=== PATIENT | female | born 1955 | race Caucasian/White ===

== ENCOUNTER 2018-06-29 11:30 | Day surgery (SDC) | payer MEDICARE, OTHER ==
[~2018-06-29] VITALS: Ht 144.8 cm; Wt 80.0 kg
[~2018-06-29 11:30] MED LIST: Abilify2 MG PO; Amlodipine Besyl5 MG PO; Aspirin EC81 MG PO; CHOL10002 PO; CLON.1 PO; FISH OIL 1,0001 EAC1 PO; FOLI1 PO; LOSA25 PO; NEW BP MED; PRAVACHOL; QUET100 PO; SIMV10 PO; SULTRIDS PO; VENL75ER PO
--- NOTE | 2018-06-29 14:34 | NUR ---
[facility] SPOKE WITH [facility] AND SCHEDULED AN INTAKE APPOINTMENT FOR 06/30/18 @ 2PM FOR PATIENT. APPOINTMENT AND TIME IS NOTED IN THE DISCHARGE PAPERWORK.
--- NOTE | 2018-06-29 15:20 | NUR ---
DISCHARGE PT REMAINED A&OX3 AND DENIED ANY PAIN DURING RECOVERY. R UPPER CHEST SITE REMAINED CDI-NO HEMATOMA NOTED-PORTS REMAINED COVERED. VSS. IV DC'D WITH CANULA IN TACT. PT ABLE TO DRESS SELF. DISCHARGE PAPERWORK GONE OVER WITH PT AND SISTER. PT AND SISTER VERBALLY STATED THE UNDERSTANDING OF THE DISCHARGE EDUCATION AND DENIED ANY QUESTIONS AT THIS TIME. PT WHEELED OUT BY THIS NURSE.
== END 2018-06-29 15:25 | disposition home or self-care (01) ==
LOC: MHTC 11:30
DX: I12.0 Hypertensive chronic kidney disease with stage 5 chronic kidney disease or end stage renal disease (principal); N18.6 End stage renal disease; D63.1 Anemia in chronic kidney disease; Z88.0 Allergy status to penicillin; Z88.8 Allergy status to other drugs, medicaments and biological substances; Z79.899 Other long term (current) drug therapy; Z79.82 Long term (current) use of aspirin
CPT/HCPCS: 36558; 76937; 99152; 99153; C1750; C1769; J1644; J2250; J3010; J7040

== ENCOUNTER 2018-07-08 18:21 | Emergency (ER) | payer MEDICARE, OTHER ==
[~2018-07-08] VITALS: Ht 170.2 cm; Wt 78.5 kg
== END 2018-07-08 20:09 | disposition home or self-care (01) ==
LOC: ER 18:21
DX: S00.03XA Contusion of scalp, initial encounter (principal); S00.12XA Contusion of left eyelid and periocular area, initial encounter; W01.198A Fall on same level from slipping, tripping and stumbling with subsequent striking against other object, initial encounter; Z88.0 Allergy status to penicillin; Z88.8 Allergy status to other drugs, medicaments and biological substances; Z79.899 Other long term (current) drug therapy; Z79.82 Long term (current) use of aspirin; F41.9 Anxiety disorder, unspecified; F43.10 Post-traumatic stress disorder, unspecified; F31.9 Bipolar disorder, unspecified; I12.9 Hypertensive chronic kidney disease with stage 1 through stage 4 chronic kidney disease, or unspecified chronic kidney disease; N18.9 Chronic kidney disease, unspecified; K21.9 Gastro-esophageal reflux disease without esophagitis; Z87.891 Personal history of nicotine dependence
CPT/HCPCS: 70450; 99283-25

== ENCOUNTER → 2018-11-10 | Outpatient (CLI) | payer MEDICARE, OTHER ==
[2018-11-12 16:07] LABS: HPV 16 Negative (Negative); HPV 18 Negative (Negative); HPV OTHER HR TYPES Positive (Negative)
== END | disposition home or self-care (01) ==
LOC: LAB 16:00 → LAB SHORT 16:00
PROVIDERS: Family Medicine
DX: Z01.419 Encounter for gynecological examination (general) (routine) without abnormal findings (principal)
CPT/HCPCS: 87624; 87625; G0123

== ENCOUNTER → 2018-12-04 | Outpatient (CLI) | payer MEDICARE, OTHER | END | disposition home or self-care (01) | LOC: LAB SHORT 13:51 → PLD 13:51 | DX: N72 Inflammatory disease of cervix uteri (principal) | CPT/HCPCS: 88305 ==

== ENCOUNTER → 2019-12-03 | Outpatient (CLI) | payer MEDICARE, OTHER ==
[2019-12-06 16:08] LABS: HPV 16 Negative (Negative); HPV 18 Negative (Negative); HPV OTHER HR TYPES Positive (Negative)
== END | disposition home or self-care (01) ==
LOC: LAB 16:43 → LAB SHORT 16:43
PROVIDERS: Family Medicine
DX: R87.610 Atypical squamous cells of undetermined significance on cytologic smear of cervix (ASC-US) (principal)
CPT/HCPCS: 87624; 87625; G0123

== ENCOUNTER → 2022-01-10 | Outpatient (CLI) | payer MEDICARE, OTHER ==
[2022-01-11 18:10] LABS: HPV 16 Negative (Negative); HPV 18 Negative (Negative); HPV OTHER HR TYPES Positive (Negative)
== END ==
LOC: RAD SHORT 16:15 → LAB 16:15
PROVIDERS: Registered Nurse Community Health
DX: Z12.4 Encounter for screening for malignant neoplasm of cervix (principal)
CPT/HCPCS: 87624; 87625; G0123

== ENCOUNTER → 2022-07-18 | Outpatient (CLI) | payer MEDICARE, OTHER ==
[2022-07-18 19:53] LABS: C-REACTIVE PROTEIN, EXT RANGE 0.721 mg/dL (0.000-0.300); CHOL/HDL RATIO 3.7; Cholesterol 144 mg/dL (50-200); HDL Cholesterol 39 mg/dL (>39); LDL/HDL RATIO 1.6; Low Density Lipoprotein Chol 64 mg/dL (0-110); Thyroid Stimulating Hormone 0.582 uIU/mL (0.360-4.800); Triglycerides 204 mg/dL (30-160); Very Low Density Lipoprot Chol 40 mg/dL (6-32)
== END | disposition home or self-care (01) ==
LOC: LAB 17:32 → LAB SHORT 17:32
PROVIDERS: Nurse Practitioner Family
DX: E78.5 Hyperlipidemia, unspecified (principal); F31.9 Bipolar disorder, unspecified; F41.9 Anxiety disorder, unspecified; F43.10 Post-traumatic stress disorder, unspecified; R19.7 Diarrhea, unspecified; R73.01 Impaired fasting glucose
CPT/HCPCS: 80061; 83036; 84443; 86140

== ENCOUNTER → 2022-08-15 | Outpatient (CLI) | payer MEDICARE, OTHER | LOC: LAB SHORT 07:54 → PLD 07:54 | DX: N87.9 Dysplasia of cervix uteri, unspecified (principal) | CPT/HCPCS: 88305 ==

== ENCOUNTER → 2022-08-15 | Outpatient (CLI) | payer MEDICARE, OTHER ==
[2022-08-22 19:09] LABS: HPV 16 Negative (Negative); HPV 18 Negative (Negative); HPV OTHER HR TYPES Positive (Negative)
== END ==
LOC: LAB 15:30 → LAB SHORT 15:30
PROVIDERS: Registered Nurse Community Health
DX: Z12.4 Encounter for screening for malignant neoplasm of cervix (principal); Z87.42 Personal history of other diseases of the female genital tract
CPT/HCPCS: 87624; 87625; G0145

== ENCOUNTER 2022-10-01 05:40 | Inpatient (IN) | payer MEDICARE, OTHER ==
[2022-10-01] VITALS (10 sets, daily range): BP systolic 106–131; BP diastolic 51–81
[~2022-10-01] VITALS: Ht 170.2 cm; Wt 71.8 kg
[2022-10-01 06:17] LABS: BASOPHILS ABSOLUTE AUTO 0.01 K/mm3 (0.00-0.23); BASOPHILS PERCENT AUTO 0 % (0-2); EOSINOPHILS PERCENT AUTO 0 % (0-6); Hematocrit 18.2 % (33.0-51.0); IMMATURE GRAN ABSOLUTE AUTO 0.01 K/mm3 (0.00-0.10); IMMATURE GRAN PERCENT AUTO 0 % (0-1); LYMPHOCYTES ABSOLUTE AUTO 0.63 K/mm3 (0.84-5.20); LYMPHOCYTES PERCENT AUTO 18 % (21-46); MONOCYTES ABSOLUTE AUTO 0.26 K/mm3 (0.16-1.47); MONOCYTES PERCENT AUTO 7 % (4-13); Mean Corpuscular HGB 36.6 pg (26.0-34.0); Mean Corpuscular Volume 111 fL (80-100); Mean Platelet Volume 11.7 fL (9.1-12.4); NEUTROPHILS ABSOLUTE AUTO 2.68 K/mm3 (1.96-9.15); NEUTROPHILS PERCENT AUTO 75 % (41-73); Platelet Count 188 K/mm3 (150-400); RDW Coefficient Variation 15.6 % (11.7-14.2); RDW Standard Deviation 63.7 fL (35.1-46.3); Red Blood Cell Count 1.64 M/mm3 (3.80-5.20); White Blood Cell Count 3.59 K/mm3 (4.00-11.30)
[2022-10-01 06:35] LABS: Source, Urine Straight Cath
[2022-10-01 06:39] LABS: Magnesium, Blood 1.8 mg/dL (1.6-2.4)
[2022-10-01 06:56] LABS: Albumin, Blood 2.7 g/dL (3.4-5.0); Albumin/Globulin Ratio 0.9 (0.8-1.8); Bilirubin, Total 0.2 mg/dL (0.1-1.0); Bun/Creatinine Ratio 3.2 (12.0-20.0); Calcium, Blood 7.9 mg/dL (8.5-10.1); Creatinine, Blood 3.41 mg/dL (0.40-1.00); Potassium, Blood 3.4 mmol/L (3.5-5.5); Total Protein, Blood 5.7 g/dL (6.4-8.2)
[2022-10-01 07:10] LABS: Appearance, Urine Cloudy (Clear); Bilirubin, Urine Neg (Neg); Blood, Urine 3+ (Neg); Color, Urine Yellow (P-Yellow); Glucose Qualitative, Urine Neg (Neg); Ketones, Urine Neg (Neg); Leukocyte Esterase, Urine 3+ (Neg); Nitrite, Urine Neg (Neg); Protein, Urine 3+ (Neg); Specific Gravity, Urine 1.015 (1.003-1.022); Urobilinogen, Urine NORM (Normal)
[2022-10-01 07:54] LABS: Bacteria Many /hpf; Squamous Epithelial Cells Not Seen /hpf (Few)
[2022-10-01 07:55] LABS: Amorphous Heavy (0-Heavy)
[2022-10-01 11:51] LABS: Hematocrit 21.5 % (33.0-51.0); Hemoglobin 6.9 g/dL (11.5-16.0)
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
[2022-10-01 17:41] LABS: Hematocrit 24.5 % (33.0-51.0); Hemoglobin 8.2 g/dL (11.5-16.0)
[2022-10-01 17:52] LABS: Magnesium, Blood 2.1 mg/dL (1.6-2.4); Potassium, Blood 3.7 mmol/L (3.5-5.5)
[2022-10-02] VITALS (14 sets, daily range): BP systolic 113–167; BP diastolic 68–90
[2022-10-02] MEDS ORDERED: Ventolin/Prove6.7 GM INH (00:42)
--- NOTE | 2022-10-02 04:25 | NUR ---
SHIFT SUMMARY A&O X4, BUT FORGETFUL. PT WITH LABILE MOOD DURING THIS SHIFT. PT WAS MEDICATED PER EMAR WITH HOME DOSE OF SEROQUEL BUT WAS UNABLE TO SLEEP AND BECAME AGGITATED WITH STAFF; ORDER FOR TRAZADONE; SEE EMAR. PT HAS GOTTEN SLEEP SINCE. PT CONTINUES TO BE SR WITH PVC'S. BP STABLE WITH SBP 120-130'S. AFEBRILE. SPO2 >92% ON RA-2L. PT WITH OCCASIONAL WHEEZING NOTED; ORDER FOR PT'S HOME INHALERS PLACED FOR PRN. FISTULA PATENT IN LUE. BED IN LOWEST POSITION, ALARM ON, CALL LIGHT WITHIN REACH. THIS RN WILL CONTINUE TO MONITOR UNTIL SHIFT CHANGE AT 0700.
[2022-10-02 04:44] LABS: BASOPHILS ABSOLUTE AUTO 0.03 K/mm3 (0.00-0.23); BASOPHILS PERCENT AUTO 0 % (0-2); EOSINOPHILS PERCENT AUTO 0 % (0-6); Hematocrit 24.2 % (33.0-51.0); Hemoglobin 8.1 g/dL (11.5-16.0); IMMATURE GRAN ABSOLUTE AUTO 0.03 K/mm3 (0.00-0.10); IMMATURE GRAN PERCENT AUTO 0 % (0-1); LYMPHOCYTES ABSOLUTE AUTO 1.58 K/mm3 (0.84-5.20); LYMPHOCYTES PERCENT AUTO 17 % (21-46); MONOCYTES PERCENT AUTO 3 % (4-13); Mean Corpuscular HGB 33.3 pg (26.0-34.0); Mean Corpuscular HGB Conc 33.5 g/dL (31.5-36.5); Mean Corpuscular Volume 100 fL (80-100); Mean Platelet Volume 12.4 fL (9.1-12.4); NEUTROPHILS ABSOLUTE AUTO 7.57 K/mm3 (1.96-9.15); NEUTROPHILS PERCENT AUTO 80 % (41-73); Platelet Count 200 K/mm3 (150-400); RDW Coefficient Variation 23.2 % (11.7-14.2); RDW Standard Deviation 82.6 fL (35.1-46.3); Red Blood Cell Count 2.43 M/mm3 (3.80-5.20); White Blood Cell Count 9.51 K/mm3 (4.00-11.30)
[2022-10-02 05:07] LABS: Albumin, Blood 2.7 g/dL (3.4-5.0); Albumin/Globulin Ratio 0.8 (0.8-1.8); Bilirubin, Total 0.4 mg/dL (0.1-1.0); Bun/Creatinine Ratio 4.2 (12.0-20.0); Calcium, Blood 7.6 mg/dL (8.5-10.1); Creatinine, Blood 4.8 mg/dL (0.40-1.00); Globulin, Blood 3.3 g/dL (2.2-4.0); Potassium, Blood 2.9 mmol/L (3.5-5.5)
[2022-10-02 07:54] LABS: Stool Occult Blood Guaiac 1 Neg (Neg)
--- NOTE | 2022-10-02 11:27 | NUR ---
UPDATE PT A&O X4, PLEASANT & COOPERATIVE THIS AM. PT VSS. SPO2 > 92% ON RA. MONITOR SHOWING SR, HR 80s-100. PT TAKEN TO DIAYLSIS @ APPROX 0830. CALL FROM DIALYSIS NURSE @ APPROX 0915 REPORTING PT "FLAILING" IN BED, UNABLE TO KEEP STILL & IF UNABLE TO KEEP STILL DIALYSIS WILL HAVE TO STOP. CALL TO MD RAMON MD W/ ORDER FOR ONE TIME 0.5 MG IV ATIVAN. THIS RN TO DIALYSIS UNIT. RT IN RM W/ PT & DIALYSIS NURSES. PT BREATHING VEVRY LABORED & WET SOUNDING. PT RESTLESS IN BED. ONE TIME IV ATIVAN GIVEN PER ORDER W/ PT CONSENT. PT ALREADY DISCONNECTED FROM DIALYSIS TREATMENT UPON THIS NURSE ARRIVAL. PT THEN CALM AFTER IV ATIVAN GIVEN. PT BACK TO PCU-10. RT PLACED PT ON BIPAP. PT TOLERATING BIPAP WELL W/ ONE TIME IV ATIVIAN. PT POTENTIALLY TO REATTEMPT DIALYSIS THIS AFTERNOON.
--- NOTE | 2022-10-02 17:31 | NUR ---
END OF SHIFT A&O X4, PLEASANT & COOPERATIVE. PT REMAINS ON BIPAP:12/20, FIO2 30%, TOLERATING BIPAP WELL. RR 20s-30s. PT NPO, AWAITING ST EVAL. PT UNDERSTANDING OF NEED FOR SWALLOW EVALUATION. DIALYSIS NOT REATTEMPTED TODAY. PT FRIEND MILAGROS AT BEDSIDE THIS SHIFT.
[2022-10-03] VITALS (14 sets, daily range): BP systolic 100–135; BP diastolic 45–84
--- NOTE | 2022-10-03 04:46 | NUR ---
SHIFT SUMMARY NO ACUTE CHANGES OVERNIGHT. PT REMAINED ON BIPAP THROUGHOUT THIS SHIFT. SPO2 >92%; TACHYPNEA NOTED. BP STABLE. SR WITH 1ST DEGREE AVB, AND PVC'S, HR 80-90'S. AFEBRILE. NO CHANGES IN NEURO. PT CALLING APPRORIATELY DURING THIS SHIFT. PT NPO D/T ASPIRATION RISK; ST EVAL ORDER IN FOR THIS MORNING. PT CALLING APPROPRIATELY. COOPERATIVE WITH STAFF. MEDICATING PER EMAR FOR AGITATION. REPOSITIONS SELF IN BED INDEPENDENTLY. IGNITION SAFETY/RISK ASSESSMENT AND EDUCATION COMPLETE. BED IN LOWEST POSITION AND CALL LIGHT WITHIN REACH. THIS RN WILL CONTINUE TO MONITOR UNTIL SHIFT CHANGE AT 0700.
[2022-10-03 07:33] LABS: BASOPHILS ABSOLUTE AUTO 0.03 K/mm3 (0.00-0.23); BASOPHILS PERCENT AUTO 0 % (0-2); EOSINOPHILS PERCENT AUTO 0 % (0-6); Hematocrit 25.5 % (33.0-51.0); Hemoglobin 8.5 g/dL (11.5-16.0); IMMATURE GRAN ABSOLUTE AUTO 0.03 K/mm3 (0.00-0.10); IMMATURE GRAN PERCENT AUTO 0 % (0-1); LYMPHOCYTES ABSOLUTE AUTO 1.92 K/mm3 (0.84-5.20); LYMPHOCYTES PERCENT AUTO 24 % (21-46); MONOCYTES ABSOLUTE AUTO 0.48 K/mm3 (0.16-1.47); MONOCYTES PERCENT AUTO 6 % (4-13); Mean Corpuscular HGB 33.9 pg (26.0-34.0); Mean Corpuscular HGB Conc 33.3 g/dL (31.5-36.5); Mean Corpuscular Volume 102 fL (80-100); Mean Platelet Volume 12.4 fL (9.1-12.4); NEUTROPHILS PERCENT AUTO 69 % (41-73); Platelet Count 168 K/mm3 (150-400); RDW Coefficient Variation 21.2 % (11.7-14.2); RDW Standard Deviation 79.4 fL (35.1-46.3); Red Blood Cell Count 2.51 M/mm3 (3.80-5.20); White Blood Cell Count 7.96 K/mm3 (4.00-11.30)
[2022-10-03 07:49] LABS: Albumin, Blood 2.8 g/dL (3.4-5.0); Anion Gap 9 mmol/L (6-16); Blood Urea Nitrogen 32 mg/dL (8-24); Bun/Creatinine Ratio 5.9 (12.0-20.0); CO2, Blood 29 mmol/L (21-32); Calcium, Blood 8.3 mg/dL (8.5-10.1); Chloride, Blood 99 mmol/L (98-108); Creatinine, Blood 5.41 mg/dL (0.40-1.00); Glomerular Filtration Rate 8 (60-); Glucose, Blood 105 mg/dL (70-99); Phosphorus, Blood 2.6 mg/dL (2.5-4.9); Potassium, Blood 3.4 mmol/L (3.5-5.5); Sodium, Blood 137 mmol/L (136-145)
[2022-10-03 13:09] LABS: IRON BIND.CAP.(TIBC) 214 ug/dL (250-450); IRON SATURATION 12 % (15-55); IRON, SERUM 25 ug/dL (27-139); UIBC 189 ug/dL (118-369)
--- NOTE | 2022-10-03 17:42 | NUR ---
MEDICAL STATUS / END OF SHIFT PT A&O X4. VSS. SPO2 > 92% ON RA. PT MADE MEDICAL NO TELEMETRY STATUS. MONITOR SHOWING NSR PRIOR TO TELEMETRY DC. DIALYSIS DONE IN PT RM THIS SHIFT. PT DESAT WHILE SLEEPING DURING DIALYSIS, 2L NC APPLIED BY [employer]. PT TOLERATING RA WHILE AWAKE. PT INCONTINENT OF URINE & STOOL. PT UNAWARE WHEN ATTENDS SOILED. PT W/ LOW URINE OUTPUT. ATTENDS IN PLACE. FIRE IGNITION RISK ASSESSMENT/EDUCATION COMPLETE.
[2022-10-04] VITALS (12 sets, daily range): BP systolic 117–138; BP diastolic 54–75
[2022-10-04 05:14] LABS: BASOPHILS ABSOLUTE AUTO 0.04 K/mm3 (0.00-0.23); BASOPHILS PERCENT AUTO 1 % (0-2); EOSINOPHILS ABSOLUTE AUTO 0.01 K/mm3 (0.00-0.68); EOSINOPHILS PERCENT AUTO 0 % (0-6); Hematocrit 22.5 % (33.0-51.0); Hemoglobin 7.4 g/dL (11.5-16.0); IMMATURE GRAN ABSOLUTE AUTO 0.01 K/mm3 (0.00-0.10); IMMATURE GRAN PERCENT AUTO 0 % (0-1); LYMPHOCYTES ABSOLUTE AUTO 1.73 K/mm3 (0.84-5.20); LYMPHOCYTES PERCENT AUTO 37 % (21-46); MONOCYTES ABSOLUTE AUTO 0.29 K/mm3 (0.16-1.47); MONOCYTES PERCENT AUTO 6 % (4-13); Mean Corpuscular HGB Conc 32.9 g/dL (31.5-36.5); Mean Corpuscular Volume 100 fL (80-100); Mean Platelet Volume 12.4 fL (9.1-12.4); NEUTROPHILS ABSOLUTE AUTO 2.57 K/mm3 (1.96-9.15); NEUTROPHILS PERCENT AUTO 55 % (41-73); Platelet Count 159 K/mm3 (150-400); RDW Coefficient Variation 19.6 % (11.7-14.2); RDW Standard Deviation 71.7 fL (35.1-46.3); Red Blood Cell Count 2.24 M/mm3 (3.80-5.20); White Blood Cell Count 4.65 K/mm3 (4.00-11.30)
[2022-10-04 06:00] LABS: Albumin, Blood 2.3 g/dL (3.4-5.0); Anion Gap 5 mmol/L (6-16); Blood Urea Nitrogen 33 mg/dL (8-24); CO2, Blood 33 mmol/L (21-32); Calcium, Blood 8.2 mg/dL (8.5-10.1); Chloride, Blood 100 mmol/L (98-108); Creatinine, Blood 4.69 mg/dL (0.40-1.00); Glomerular Filtration Rate 10 (60-); Glucose, Blood 107 mg/dL (70-99); Magnesium, Blood 1.8 mg/dL (1.6-2.4); Potassium, Blood 3.2 mmol/L (3.5-5.5); Sodium, Blood 138 mmol/L (136-145)
[2022-10-04 06:12] LABS: FERRITIN 538 ng/mL (15-150)
--- NOTE | 2022-10-04 06:24 | NUR ---
EOS NOTE: MOSTLY UNEVENTFUL SHIFT FOR PATIENT. WOKE UP AT 0500 STATING SHE WAS FEELING SLIGHTLY CONFUSED, A/OX4, NO NOTABLE CHANGES TO MENTATION. WILL CONTINUE TO MONITOR. PATIENT IS PLEASANT & COOPERATIVE.
[2022-10-04 14:39] LABS: Hemoglobin 8.9 g/dL (11.5-16.0)
--- NOTE | 2022-10-04 16:41 | NUR ---
SHIFT SUMMARY: PATIENT A&OX3-4, c SLIGHT FORGETFUL AT TIMES. OTHERWISE, ANSWER TO QUESTIONS APPROPRIATELY. PLEASANT AND COOPERATIVE c CARE. PATIENT HAD HEDIALYSIS TODAY c 1,701 NET FLUIDS WAS REMOVED. DENIES CP/PRESSURE, SOB, N/V AND GENERALIZED PAIN. RECEIVED OT DOSE OF IV SODIUM PHOS. VITAL SIGNS REVIEWED. PIV TO R AC SALINE LOCKED. AMBULATES TO BATHROOM AND BACK IN BED c SBA. BED ALARM ON FOR SAFETY. CALL LIGHT IN REACH.
[2022-10-05 02:51] VITALS: BP 144/78
[2022-10-05 04:54] LABS: Hematocrit 23.8 % (33.0-51.0)
[2022-10-05 05:24] LABS: Albumin, Blood 2.4 g/dL (3.4-5.0); Anion Gap 7 mmol/L (6-16); Blood Urea Nitrogen 45 mg/dL (8-24); Bun/Creatinine Ratio 8.3 (12.0-20.0); CO2, Blood 30 mmol/L (21-32); Calcium, Blood 8.2 mg/dL (8.5-10.1); Chloride, Blood 99 mmol/L (98-108); Creatinine, Blood 5.45 mg/dL (0.40-1.00); Glomerular Filtration Rate 8 (60-); Glucose, Blood 101 mg/dL (70-99); Magnesium, Blood 1.8 mg/dL (1.6-2.4); Phosphorus, Blood 1.8 mg/dL (2.5-4.9); Potassium, Blood 3.8 mmol/L (3.5-5.5); Sodium, Blood 136 mmol/L (136-145)
--- NOTE | 2022-10-05 06:25 | NUR ---
SHIFT SUMMARY NO EVENTS OVERNIGHT. NEW IV PLACED IN R FA PER PTS REQUEST, R AC IV WAS CAUSING PAIN. Q1H FIRE SAFETY CHECKS COMPLETED, NO IGNITION SOURCES FOUND
[2022-10-05 07:50] VITALS: BP 114/60
[2022-10-05] MEDS ORDERED: Acetaminophen650 M1 PO (11:55)
[2022-10-05] MEDS ORDERED: DOXY100 PO (11:56)
[2022-10-05] MEDS ORDERED: Aldactone25 MG PO (11:58)
[2022-10-05] MEDS ORDERED: VISBIOME 112.51 EACH PO (11:58)
[2022-10-05] MEDS ORDERED: PANT40 PO (11:59)
[2022-10-05 15:50] VITALS: BP 140/79
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
[2022-10-05 19:08] VITALS: BP 130/64
[2022-10-06] VITALS (19 sets, daily range): BP systolic 112–133; BP diastolic 60–71
[2022-10-06 05:01] LABS: Hematocrit 23.7 % (33.0-51.0); Hemoglobin 7.9 g/dL (11.5-16.0)
[2022-10-06 05:36] LABS: Albumin, Blood 2.4 g/dL (3.4-5.0); Anion Gap 6 mmol/L (6-16); Blood Urea Nitrogen 52 mg/dL (8-24); Bun/Creatinine Ratio 8.4 (12.0-20.0); CO2, Blood 31 mmol/L (21-32); Calcium, Blood 8.1 mg/dL (8.5-10.1); Chloride, Blood 95 mmol/L (98-108); Creatinine, Blood 6.19 mg/dL (0.40-1.00); Glomerular Filtration Rate 7 (60-); Glucose, Blood 106 mg/dL (70-99); Magnesium, Blood 1.8 mg/dL (1.6-2.4); Phosphorus, Blood 3.2 mg/dL (2.5-4.9); Potassium, Blood 3.7 mmol/L (3.5-5.5); Sodium, Blood 132 mmol/L (136-145)
--- NOTE | 2022-10-06 06:07 | NUR ---
SHIFT SUMMARY PT HAS A COUGH, DISCUSSED WITH PATIENT, SHE STATES SHE ALWAYS COUGHS BEFORE BED. WILL DISCUSS WITH DAYSHIFT RN TO CONTINUE TO MONITOR. PT SLEPT WELL THROUGHOUT THE NIGHT. NO C/O PAIN. Q1H FIRE SAFETY CHECKS COMPLETED, NO IGNITION SOURCES FOUND
--- NOTE | 2022-10-06 07:26 | NUR ---
RECEIVED BEDSIDE REPORT FROM NOC RN, PATIENT STARTED NONPRODUCTIVE COUGH LAST NIGHT AND WENT TO SLEPT, BUT EARLIER THIS MORNING STARTED COUGHING AGAIN. THIS RN RN ASSESS PATIENT, LUNGS HAS WHEEZES T/O TO AUSCULTATION. PATIENT REPORTS SOB, RA c SPO2 98-99%. PATIENT STATED "I USED ALBUTEROL IN THE MORNING." CALLED DR. NAVARRO TO REPORT PATIENT ISSUES. PER DR. NAVARRO SHE WILL PUT THE ORDER IN.
--- NOTE | 2022-10-06 17:40 | NUR ---
SHIFT SUMMARY: PATIENT HAD OT EPISODE OF SOB THIS AM AND AFTER RECEIVING ALBUTEROL TX ADMINISTERED BY RT, PATIENT REPORTS "FEELING A LOT BETTER." PATIENT CONTINOUS TO HAVE DRY NON PRODUCTIVE COUGH T/O SHIFT. LUNGS STILL WHEEZING T/O TO AUSCULTATION. DENIES SOB, CP/PRESSURE, N/V AND GENERALIZED PAIN. PATIENT ON RA c SPO2 RANGES 96-99% T/O SHIFT. PATIENT HAD HEMODIALYSIS TODAY c 2,500 NET FLUIDS WAS REMOVED. EATING AND DRINKING WELL WITHOUT ANY DIFFICULTIES. PATIENT AMBULATES TO BATHROOM AND BACK IN BED c SBA AND FWW. RECEIVED SCHEDULED MEDS PER EMAR. VITAL SIGNS REVIEWED. PIV TO R FOREARM SALINE LOCKED. FISTULA TO L ARM c POSITIVE THRILL AND BRUIT. BED ALARM ON FOR SAFETY. CALL LIGHT IN REACH. PATIENT EDUCATED ON NON SMOKING POLICY, RISK OF INJURIES, AND IGNITION SOURCES WHEN O2 IN USE. PATIENT DENIES SMOKING AND STATED UNDERSTANDING.
[2022-10-07 04:46] LABS: Hematocrit 24.5 % (33.0-51.0); Hemoglobin 8.3 g/dL (11.5-16.0)
[2022-10-07 04:53] VITALS: BP 101/54
[2022-10-07 05:12] LABS: Albumin, Blood 2.3 g/dL (3.4-5.0); Anion Gap 7 mmol/L (6-16); Blood Urea Nitrogen 33 mg/dL (8-24); Bun/Creatinine Ratio 8.1 (12.0-20.0); CO2, Blood 31 mmol/L (21-32); Calcium, Blood 8.2 mg/dL (8.5-10.1); Chloride, Blood 94 mmol/L (98-108); Creatinine, Blood 4.08 mg/dL (0.40-1.00); Glomerular Filtration Rate 11 (60-); Glucose, Blood 97 mg/dL (70-99); Magnesium, Blood 1.7 mg/dL (1.6-2.4); Phosphorus, Blood 2.6 mg/dL (2.5-4.9); Potassium, Blood 3.9 mmol/L (3.5-5.5); Sodium, Blood 132 mmol/L (136-145)
--- NOTE | 2022-10-07 06:40 | NUR ---
SHIFT SUMMARY PRN TYLENOL GIVEN X1 FOR NECK PAIN WITH POSITIVE EFFECT. NO OTHER EVENTS OVERNIGHT. PT SLEPT WELL. Q1H FIRE SAFETY CHECKS COMPLETED, NO IGNITON SOURCES
[2022-10-07 07:40] VITALS: BP 129/76
--- NOTE | 2022-10-07 15:16 | NUR ---
"Spiritual Care|Nurse Request Pt. is awake sitting on her bed and she welcomes my visit. Pt. is unsettled by the news that her father today in [place]. Pt. displayed evidenc of appropriate grief. Facilitated a life review with her father being the central character. Pt. displayed evidence of being comforted by the visit. Head Pts. hands as I Prayed with Pt. Pt. verbalized gratitude for the visit and walked this transport manager to the doorway to her room."
[2022-10-07 16:05] VITALS: BP 126/73
--- NOTE | 2022-10-07 18:15 | NUR ---
SHIFT SUMMARY: PT A&O X3 THIS SHIFT. CAN OCCASIONALLY BECOME FORGETFUL AND GO ON TANGENTS. EASILY REDIRECTABLE. PT PLEASANT AND COOPERATIVE WITH ALL CARE. NO ACUTE CHANGES WITH PT THIS SHIFT. ABX D/C THIS AM. PT VERY UPSET THIS AFTERNOON AFTER FINDING OUT ABOUT OF HER FATHER. AWAITING PLACEMENT AT THIS TIME. PT DOING WELL WITH SOFT FOOD AND MEDS WHOLE WITH WATER. NO ASPIRATION NOTED. IGNITION SOURCES DISCUSSED WITH PT DURING HOURLY ROUNDS BY THIS RN AND THIS AM BY TOOL SHARPENER. PT VERBALIZES UNDERSTANDING. CALL LIGHT IN REACH. BED IN LOWEST POSITION. WILL CONTINUE TO MONITOR.
[2022-10-07 19:59] VITALS: BP 134/81
[2022-10-08] VITALS (18 sets, daily range): BP systolic 116–130; BP diastolic 57–152
--- NOTE | 2022-10-08 04:24 | NUR ---
SHIFT SUMMARY PT ALERT AND ORIENTED X4. TALKATIVE. CALM AND COOPERATIVE. INDEPENDENT IN THE ROOM AND CALLS APPROPRIATELY. BED IS THE LOWEST POSITION WITH CALL LIGHT IN REACH. PT DENIES SMOKING ANY PRODUCT; PT IS R/A. DURING ROUNDING, EDUCATION PROVIDED ON THE RISKS OF INJURY WHILE USING ANY IGNITION SOURCE AROUND OXYGEN. PT VERBALIZES UNDERSTANDING. PT DENIES HAVING ANY IGNITION SOURCES. NO VISITORS THIS SHIFT.
[2022-10-08 06:52] LABS: Magnesium, Blood 1.9 mg/dL (1.6-2.4); Phosphorus, Blood 3.3 mg/dL (2.5-4.9)
--- NOTE | 2022-10-08 18:30 | NUR ---
PATIENT EDUCATED AT START OF SHIFT RELATED TO FIRE SAFETY AND INABILITY TO USE FLAMMABLE ITEMS IN THE HOSPITAL. PATIENT MONITORED WITH HOURLY ROUNDING
--- NOTE | 2022-10-08 18:30 | NUR ---
SHIFT SUMMARY PATIENT INDEPENDENT IN THE ROOM. PATIENT VERY TALKATIVE. PATIENT HAD DIALYSIS IN THE ROOM TODAY. PATIENT TOLERATED DIALYSIS WELL. CONTINUE TO WAIT FOR PLACEMENT.
--- NOTE | 2022-10-09 03:54 | NUR ---
SHIFT SUMMARY. SHIFT HAS BEEN UNREMARKABLE. PT TOOK 2100 SEROQUEL WITHOUT DIFFICULTY AND HAS SLEPT THROUGH MUCH OF REMAINDER OF SHIFT. COMPLAINTS OF VERY MILD ACHES EARLY IN SHIFT THAT WERE ALLEVIATED WITH PRN TYLENOL. NO COMPLAINTS SINCE. AOX4, VERY PLEASANT, COOPERATIVE WITH CARE. VERY TALKATIVE BUT EXCEEDINGLY PLEASANT. AWAITING PLACEMENT WITH ADMISSION ISSUES SINCE RESOLVED PER NOTE REVIEW. SOCIAL SERVICES COUNSELOR RESCREENING INDICATES EXPECTED DC TO BE 7/28. CALLS APPROPRIATELY. BED LOCKED IN LOWEST POSITION. CALL LIGHT LEFT WITHIN REACH.
[2022-10-09 04:43] VITALS: BP 121/72
[2022-10-09 04:56] LABS: Hematocrit 25.1 % (33.0-51.0); Hemoglobin 8.4 g/dL (11.5-16.0)
[2022-10-09 05:30] LABS: Albumin, Blood 2.5 g/dL (3.4-5.0); Anion Gap 7 mmol/L (6-16); Blood Urea Nitrogen 31 mg/dL (8-24); Bun/Creatinine Ratio 8.6 (12.0-20.0); CO2, Blood 35 mmol/L (21-32); Calcium, Blood 8.5 mg/dL (8.5-10.1); Chloride, Blood 94 mmol/L (98-108); Creatinine, Blood 3.61 mg/dL (0.40-1.00); Glomerular Filtration Rate 13 (60-); Glucose, Blood 97 mg/dL (70-99); Magnesium, Blood 1.9 mg/dL (1.6-2.4); Phosphorus, Blood 2.8 mg/dL (2.5-4.9); Potassium, Blood 3.6 mmol/L (3.5-5.5); Sodium, Blood 136 mmol/L (136-145)
[2022-10-09 07:39] VITALS: BP 118/76
[2022-10-09 14:30] LABS: Influenza A, PCR NEGATIVE (NEGATIVE); Influenza B, PCR NEGATIVE (NEGATIVE); Resp Syncytial Virus, PCR NEGATIVE (NEGATIVE); SARS-Cov-2 (COVID-19) PCR, MMC NEGATIVE (NEGATIVE)
--- NOTE | 2022-10-09 15:43 | NUR ---
DISCHARGE AND SHIFT SUMMARY PATIENT DISCHARGED TO [facility]. PATIENT TAKEN OUT VIA WHEELCHAIR. PATIENT ALERT AND INTERACTIVE. PATIENT LOOKING FORWARD TO DISCHARGE TO A FACILITY. PATIENT TRANSPORTED BY WHEELCHAIR TO [facility]. REPORT CALLED TO FACILITY RN. IV DC'D, CATHETER INTACT. PATIENT CHANGED TO PAPER SCRUBS AND BELONGINGS SENT WITH PATIENT TO FACILITY. PATIENT INDEPENDENT IN THE ROOM AND WALKING IN HALLS TODAY. NO DIALYSIS TODAY.
[2022-10-11 17:12] LABS: ALDOS/RENIN RATIO <.1 (0.0-30.0); ALDOSTERONE <1.0 ng/dL (0.0-30.0)
== END 2022-10-09 15:30 | DRG 314 ==
LOC: ER 05:40 → PCU 09:40 → MEDS 09:40 → PCU 11:45 → MEDS 10-03 20:07 → ENPENDDIS 10-05 10:51 → MEDS 10-09 15:30
PROVIDERS: Internal Medicine; Internal Medicine Nephrology; Student in an Organized Health Care Education/Training Program; ADMIT Internal Medicine
PROC: 5A09357 Assistance with Respiratory Ventilation, Less than 24 Consecutive Hours, Continuous Positive Airway Pressure (ICD-10-PCS; principal; 2022-10-05)
PROC: 30233N1 Transfusion of Nonautologous Red Blood Cells into Peripheral Vein, Percutaneous Approach (ICD-10-PCS; 2022-10-05)
PROC: 5A1D70Z Performance of Urinary Filtration, Intermittent, Less than 6 Hours Per Day (ICD-10-PCS; 2022-10-05)
DX: I95.9 Hypotension, unspecified (principal); J18.9 Pneumonia, unspecified organism; J96.01 Acute respiratory failure with hypoxia; N18.6 End stage renal disease; I12.0 Hypertensive chronic kidney disease with stage 5 chronic kidney disease or end stage renal disease; N39.0 Urinary tract infection, site not specified; J44.0 Chronic obstructive pulmonary disease with (acute) lower respiratory infection; E87.1 Hypo-osmolality and hyponatremia; D63.1 Anemia in chronic kidney disease; B96.89 Other specified bacterial agents as the cause of diseases classified elsewhere; E78.00 Pure hypercholesterolemia, unspecified; F31.9 Bipolar disorder, unspecified; K21.9 Gastro-esophageal reflux disease without esophagitis; F43.10 Post-traumatic stress disorder, unspecified; R41.82 Altered mental status, unspecified; E86.0 Dehydration; R79.89 Other specified abnormal findings of blood chemistry; E87.6 Hypokalemia; E83.39 Other disorders of phosphorus metabolism; R77.0 Abnormality of albumin; E87.70 Fluid overload, unspecified; Z20.822 Contact with and (suspected) exposure to COVID-19; Z99.2 Dependence on renal dialysis; Z79.82 Long term (current) use of aspirin; Z79.899 Other long term (current) drug therapy; Z88.0 Allergy status to penicillin; Z88.8 Allergy status to other drugs, medicaments and biological substances; Z87.891 Personal history of nicotine dependence; Z59.00 Homelessness unspecified
CPT/HCPCS: 0241U; 36415; 36430; 71045; 80053; 80069; 81001; 82272; 82728; 83540; 83550; 83605; 83735; 83880; 84100; 84132; 84145; 85014; 85018; 85025; 86850; 86900; 86901; 86923; 87040; 87077; 87086; 87186; 92526; 92610; 93005; 93010; 94640; 94644; 94660; 94664; 94760; 94762; 96365; 96375; 99285-25; A9270; C9113; J0696; J0881; J2060; J2930; J3480; J7030; J7040; J7050; J7060; P9016

== ENCOUNTER 2024-03-16 15:31 | Inpatient (IN) | payer MEDICARE, OTHER ==
[~2024-03-16] VITALS: Ht 154.9 cm; Wt 67.8 kg
[~2024-03-16 15:31] MED LIST changes: +ABILIFY MYCITE5 M2 PO; +ALBU90OI INH; -Abilify2 MG PO; +Acetaminophen650 M1 PO; +Aldactone25 MG PO; +Aspir 8181 MG PO; -CHOL10002 PO; +DOXY100 PO; +PANT40 PO; -SIMV10 PO; +VISBIOME 112.51 EACH PO; +VITAMIN D32000 UNI1 PO; +Zocor10 MG PO
[2024-03-16] MEDS ORDERED: Acetaminophen 500 MG Tab PO ONE ×2 (16:30→17:25)
[2024-03-16 17:18] LABS: CORONAVIRUS COVID-19 AG Negative (NEGATIVE); INFLUENZA A AG Negative (NEGATIVE); INFLUENZA B AG Negative (NEGATIVE)
[2024-03-16] MEDS ORDERED: NS 500 ML IV SCH ×2 (17:25→19:50)
[2024-03-16] MEDS ORDERED: CefTRIAXone Sodium 1,000 MG in NS 100 ML IV ONE (17:25)
[2024-03-16] MEDS ORDERED: Azithromycin 500 MG in NS 250 ML IV ONE (17:30)
[2024-03-16 17:35] LABS: BASOPHILS ABSOLUTE AUTO 0.04 K/mm3 (0.00-0.23); BASOPHILS PERCENT AUTO 0 % (0-2); EOSINOPHILS ABSOLUTE AUTO 0.23 K/mm3 (0.00-0.68); EOSINOPHILS PERCENT AUTO 2 % (0-6); Hemoglobin 12.5 g/dL (11.5-16.0); IMMATURE GRAN ABSOLUTE AUTO 0.14 K/mm3 (0.00-0.10); IMMATURE GRAN PERCENT AUTO 1 % (0-1); LYMPHOCYTES ABSOLUTE AUTO 0.54 K/mm3 (0.84-5.20); LYMPHOCYTES PERCENT AUTO 4 % (21-46); MONOCYTES ABSOLUTE AUTO 0.46 K/mm3 (0.16-1.47); MONOCYTES PERCENT AUTO 3 % (4-13); Mean Corpuscular HGB 33.5 pg (26.0-34.0); Mean Corpuscular HGB Conc 33.8 g/dL (31.5-36.5); Mean Corpuscular Volume 99 fL (80-100); Mean Platelet Volume 11.6 fL (9.1-12.4); NEUTROPHILS ABSOLUTE AUTO 11.95 K/mm3 (1.96-9.15); NEUTROPHILS PERCENT AUTO 90 % (41-73); Platelet Count 199 K/mm3 (150-400); RDW Coefficient Variation 16.3 % (11.7-14.2); RDW Standard Deviation 59.8 fL (35.1-46.3); Red Blood Cell Count 3.73 M/mm3 (3.80-5.20); White Blood Cell Count 13.36 K/mm3 (4.00-11.30)
[2024-03-16 18:03] LABS: Albumin, Blood 2.9 g/dL (3.4-5.0); Albumin/Globulin Ratio 0.8 (0.8-1.8); Bilirubin, Total 1.4 mg/dL (0.1-1.0); Calcium, Blood 9.2 mg/dL (8.5-10.1); Creatinine, Blood 3.63 mg/dL (0.40-1.00); Globulin, Blood 3.7 g/dL (2.2-4.0); Potassium, Blood 5.1 mmol/L (3.5-5.5); Total Protein, Blood 6.6 g/dL (6.4-8.2)
[2024-03-16 20:05] LABS: Appearance, Urine Cloudy (Clear); Blood, Urine 2+ (Neg); Color, Urine Amber (P-Yellow); Glucose Qualitative, Urine Neg (Neg); Ketones, Urine 2+ (Neg); Leukocyte Esterase, Urine 3+ (Neg); Nitrite, Urine Neg (Neg); Source, Urine Clean Catch; Urobilinogen, Urine 1+ (Normal)
[2024-03-16] MEDS ORDERED: FLU VACC TS2024-25(6MOS UP)/PF 45 MCG/0.5 ML SYRINGE IM SCH (20:35)
[2024-03-16] MEDS ORDERED: Ondansetron 4 MG TAB PO PRN (20:40)
[2024-03-16] MEDS ORDERED: Acetaminophen 325 MG TABLET PO PRN (20:40)
[2024-03-16] MEDS ORDERED: Albuterol 2.5 MG/3 ML VIAL INH PRN (20:45)
[2024-03-16] MEDS ORDERED: QUEtiapine Fumarate 300 MG Tab PO SCH (21:00)
[2024-03-16 21:32] LABS: Protein, Urine 4+ (Neg)
[2024-03-16 21:45] LABS: Bilirubin, Urine 1+ (Neg)
[2024-03-16 21:51] LABS: Amorphous Heavy (0-Heavy); Bacteria Mod /hpf; Red Blood Cells, Urine 0-2 /hpf (0-2); Squamous Epithelial Cells Few /hpf (Few); White Blood Cells, Urine 50-100 /hpf (0-5)
[2024-03-17] VITALS (15 sets, daily range): BP systolic 90–132; BP diastolic 38–73
[2024-03-17 05:07] LABS: BASOPHILS ABSOLUTE AUTO 0.06 K/mm3 (0.00-0.23); BASOPHILS PERCENT AUTO 1 % (0-2); EOSINOPHILS PERCENT AUTO 0 % (0-6); Hematocrit 34.4 % (33.0-51.0); Hemoglobin 11.4 g/dL (11.5-16.0); IMMATURE GRAN PERCENT AUTO 3 % (0-1); LYMPHOCYTES ABSOLUTE AUTO 0.63 K/mm3 (0.84-5.20); LYMPHOCYTES PERCENT AUTO 5 % (21-46); MONOCYTES ABSOLUTE AUTO 0.33 K/mm3 (0.16-1.47); MONOCYTES PERCENT AUTO 3 % (4-13); Mean Corpuscular HGB 33.5 pg (26.0-34.0); Mean Corpuscular HGB Conc 33.1 g/dL (31.5-36.5); Mean Corpuscular Volume 101 fL (80-100); Mean Platelet Volume 11.5 fL (9.1-12.4); NEUTROPHILS ABSOLUTE AUTO 10.31 K/mm3 (1.96-9.15); NEUTROPHILS PERCENT AUTO 88 % (41-73); Platelet Count 147 K/mm3 (150-400); RDW Coefficient Variation 16.3 % (11.7-14.2); RDW Standard Deviation 60.6 fL (35.1-46.3); White Blood Cell Count 11.73 K/mm3 (4.00-11.30)
[2024-03-17 05:48] LABS: Albumin, Blood 2.7 g/dL (3.4-5.0); Anion Gap 12 mmol/L (3-11); Blood Urea Nitrogen 49 mg/dL (8-24); Bun/Creatinine Ratio 12.2 (12.0-20.0); CO2, Blood 28 mmol/L (21-32); Calcium, Blood 8.8 mg/dL (8.5-10.1); Chloride, Blood 97 mmol/L (98-108); Creatinine, Blood 4.03 mg/dL (0.40-1.00); Glomerular Filtration Rate 12 (60-); Glucose, Blood 78 mg/dL (70-99); Phosphorus, Blood 2.9 mg/dL (2.5-4.9); Potassium, Blood 5.1 mmol/L (3.5-5.5); Sodium, Blood 132 mmol/L (136-145)
[2024-03-17] MEDS ORDERED: Pantoprazole Sodium 40 MG Tab PO SCH (06:00)
[2024-03-17] MEDS ORDERED: Folic Acid 1 MG TAB PO SCH (09:00)
[2024-03-17] MEDS ORDERED: ARIPiprazole 2 MG Tablet PO SCH (09:00)
[2024-03-17] MEDS ORDERED: Heparin Sodium 5000 Units/ML 1ML MDV SC SCH (09:00)
[2024-03-17] MEDS ORDERED: Aspirin 81 MG Chew PO SCH (09:00)
[2024-03-17] MEDS ORDERED: Benzonatate 100 MG Cap PO PRN (10:20)
--- NOTE | 2024-03-17 10:34 | NUR ---
PT ADMITTED THIS MORNING FROM ER INTO PCU 17. REPORT FROM LIBORIO Sanchez RN. THE PT IS A&OX3-4 AND ABLE TO MAKE HER NEEDS KNOWN. THE PT IS A 1P ASSIST W/ FWW. SHE REPORTS SHE KNOWNS WHEN SHE NEEDS TO USE THE BATHROOM. SHE IS A DIALYSIS PT AND IS CURRENTLY IN DIALYSIS. SHE IS N 2L NC W/ SP02 >95%. SHE DENIES WORSENING SOB FROM WHEN SHE ARRIVED TO THE ER. SHE DOES C/O A COUGH THAT HURTS HER CHEST. SHE IS WITHOUT CHEST PAIN WHEN NOT COUGHING. DR. WATERS NOTIFIED AND STARTED THE PT ON TESSALON PEARLS. ON TELE THE PT IS SR 60'S-80'S. BP STABLE. THE PT IS NOW MEDICAL STATUS W/O TELE. SEE NOTES FOR UPDATES.
--- NOTE | 2024-03-17 15:49 | NUR ---
THERESA WAS CALLED TO REQUEST A MED LIST BY RENTAL COUNTER CLERK. NOBODY ANSWERED. CHARGE NURSE LEFT A MESSAGE WITH STAFF.
[2024-03-17] MEDS ORDERED: NS 250 ML IV PRN (17:05)
--- NOTE | 2024-03-17 17:29 | NUR ---
PT WAS A NEW ADMIT THIS SHIFT. SHE REMAINS ORIENTEDX4, BUT SHE DOES GET ANXIOUS AND CALL'S OUT. SHE LOSES HER CALL LIGHT OFTEN. THE PT HAS BEEN C/O HER LOW BACK PAIN. SHE WAS MEDICATED WITH TYLENOL, GIVEN A HEATING PAD, REPOSITIONED MANY TIMES, TRANSFERED INT THE CHAIR, AND AN EGG CRATE WAS PLACED ON HER BED. SHE IS A 1P ASSIST W/ FWW. THE PT HAS BEEN BETWEEN 1-2L NC MAJORITY OF THE DAY. SP02 >93%. SHE IS MEDICAL TELE AND AND HAS BEEN RUNNING SR 70'S-80'S W/ FHB. THE PT HAS A DRY HACKING COUGH AND WAS STARTED ON TESSLON PEARLS. DANELLE SHE HAS A COUGHING FIT IT CAN CAUSE CHEST PAIN. PAIN RESOLVED SHORTLY AFTER COUGHING FITS. NO ACUTE EVENTS. SEE NOTES FOR UPDATES.
[2024-03-17] MEDS ORDERED: CefTRIAXone Sodium 1,000 MG in NS 100 ML IV SCH (18:00)
[2024-03-17] MEDS ORDERED: Azithromycin 500 MG in NS 250 ML IV SCH (18:00)
[2024-03-18] VITALS (18 sets, daily range): BP systolic 90–135; BP diastolic 41–77
[2024-03-18 04:17] LABS: BASOPHILS ABSOLUTE AUTO 0.04 K/mm3 (0.00-0.23); BASOPHILS PERCENT AUTO 0 % (0-2); EOSINOPHILS ABSOLUTE AUTO 0.09 K/mm3 (0.00-0.68); EOSINOPHILS PERCENT AUTO 1 % (0-6); Hematocrit 33.4 % (33.0-51.0); Hemoglobin 10.8 g/dL (11.5-16.0); IMMATURE GRAN ABSOLUTE AUTO 0.13 K/mm3 (0.00-0.10); IMMATURE GRAN PERCENT AUTO 1 % (0-1); LYMPHOCYTES ABSOLUTE AUTO 0.84 K/mm3 (0.84-5.20); LYMPHOCYTES PERCENT AUTO 9 % (21-46); MONOCYTES ABSOLUTE AUTO 0.23 K/mm3 (0.16-1.47); MONOCYTES PERCENT AUTO 2 % (4-13); Mean Corpuscular HGB 32.3 pg (26.0-34.0); Mean Corpuscular HGB Conc 32.3 g/dL (31.5-36.5); Mean Corpuscular Volume 100 fL (80-100); Mean Platelet Volume 11.5 fL (9.1-12.4); NEUTROPHILS ABSOLUTE AUTO 8.29 K/mm3 (1.96-9.15); NEUTROPHILS PERCENT AUTO 86 % (41-73); Platelet Count 159 K/mm3 (150-400); RDW Coefficient Variation 16.2 % (11.7-14.2); RDW Standard Deviation 59.4 fL (35.1-46.3); Red Blood Cell Count 3.34 M/mm3 (3.80-5.20); White Blood Cell Count 9.62 K/mm3 (4.00-11.30)
[2024-03-18 04:39] LABS: Albumin, Blood 2.6 g/dL (3.4-5.0); Albumin/Globulin Ratio 0.7 (0.8-1.8); Bilirubin, Total 0.6 mg/dL (0.1-1.0); Bun/Creatinine Ratio 13.5 (12.0-20.0); Calcium, Blood 8.7 mg/dL (8.5-10.1); Creatinine, Blood 3.99 mg/dL (0.40-1.00); Globulin, Blood 3.5 g/dL (2.2-4.0); Magnesium, Blood 2.2 mg/dL (1.6-2.4); Phosphorus, Blood 3.1 mg/dL (2.5-4.9); Potassium, Blood 4.8 mmol/L (3.5-5.5); Total Protein, Blood 6.1 g/dL (6.4-8.2)
[2024-03-18] MEDS ORDERED: MethylPREDNISolone Sod Succ 125 MG Vial IV ONE (06:15)
--- NOTE | 2024-03-18 06:21 | NUR ---
SHIFT SUMMARY PATIENT ALERT AND ORIENTED X4. HAD NO COMPLAINTS OF PAIN OR SHORTNESS OF BREATH. IS CURRENTLY ON 2 LITERS O2 VIA NC WITH SPO2 >90%. VITAL SIGNS STABLE. NO ACUTE ISSUES NOTED OVERNIGHT. WILL CONTINUE TO MONITOR. CALL LIGHT WITHIN REACH.
[2024-03-18] MEDS ORDERED: MethylPREDNISolone Sod Succ 125 MG Vial IV SCH (18:00)
--- NOTE | 2024-03-18 18:29 | NUR ---
MD CALL DR TROTTER NOTIFIED OF REPORT FROM TECHNOLOGY PROGRAM MANAGER OF 6 BEATS OF VT. VSS, PT DENIES ANY NEW SYMPTOMS, AWAKE, EATING SUPPER. TELEPHONE ORDER FOR BMP AND MG, READ BACK DONE AND PLACED IN [employer].
--- NOTE | 2024-03-18 19:41 | NUR ---
SHIFT SUMMARY MS MERCADO WAS TRANSFERED TO MEDICAL FLOOR FROM PCU AFTER COMPLETING DIALYSIS THIS MORNING. SHE IS ABLE TO ANSWER ORIENTATION QUESTIONS. SHE HAS BEEN VERY TIRED, SAID THAT SHE HAS BEEN BEHIND ON SLEEP AND WAS AROUSABLE. ON TELEMETRY, SR, 6 BEATS OF VTACH CALLED TO DR TROTTER AND LABS ORDERED. OXYGEN 2L N/C WAS FOUND INCREASED TO 4L N/C, TITRATED BACK DOWN TO 2L N/C WITH O2 SAT IN THE 90S. SHE HAS DENIED ANY SOB OR CHEST PAIN. NO UOP THIS SHIFT. +INCONTINENCE OF BM. BED LOW, CALL LIGHT IN REACH. PT ABLE TO USE CALL LIGHT APPROPRIATELY.
[2024-03-18 20:00] LABS: Bun/Creatinine Ratio 12.9 (12.0-20.0); Calcium, Blood 9.1 mg/dL (8.5-10.1); Creatinine, Blood 3.18 mg/dL (0.40-1.00); Magnesium, Blood 2.4 mg/dL (1.6-2.4); Potassium, Blood 4.6 mmol/L (3.5-5.5)
[2024-03-19] VITALS (16 sets, daily range): BP systolic 102–140; BP diastolic 58–79
--- NOTE | 2024-03-19 03:17 | NUR ---
ORCHID SUPERINTENDENT SUMMARY BP LOW NORMAL OTHERWISE VSS. TOLERATING MEDS AND PO FLUIDS WELL. O2 PER NC. LUNG SOUNDS DIMINISHED TO AUSCULTATION. HOB ELEVATED FOR RESP COMFORT. MED TELE - SR IN THE 'S. HAS BEEN RESTING QUIETLY WITH OCCASIONAL INTERRUPTION. CALL LIGHT IN REACH, RAILS UP X 2 AND BED IN LOW POSITION FOR SAFETY. ELLEN BENEDICT VOICED, (CALLED FOR NURSE TO PUT HER O2 BACK ON, IT WAS ALREADY ON). WILL CONTINUE TO MONITOR
[2024-03-19 05:49] LABS: Hematocrit 34.6 % (33.0-51.0); Hemoglobin 11.4 g/dL (11.5-16.0)
[2024-03-19 06:26] LABS: Albumin, Blood 2.7 g/dL (3.4-5.0); Anion Gap 13 mmol/L (3-11); Blood Urea Nitrogen 55 mg/dL (8-24); Bun/Creatinine Ratio 15.2 (12.0-20.0); CO2, Blood 31 mmol/L (21-32); Calcium, Blood 8.9 mg/dL (8.5-10.1); Chloride, Blood 93 mmol/L (98-108); Creatinine, Blood 3.61 mg/dL (0.40-1.00); Glomerular Filtration Rate 13 (60-); Glucose, Blood 147 mg/dL (70-99); Magnesium, Blood 2.4 mg/dL (1.6-2.4); Phosphorus, Blood 4.6 mg/dL (2.5-4.9); Potassium, Blood 4.7 mmol/L (3.5-5.5); Sodium, Blood 132 mmol/L (136-145)
--- NOTE | 2024-03-19 17:28 | NUR ---
SHIFT SUMMARY- PT HAD HD TODAY. SHE WAS ABLE TO GET TO THE BSC AND HAVE A SMALL BM, SHE VOIDS VERY SMALL AMOUNTS OF URINE, PT ALERT AND ORIENTED, FORGETFUL AND HYPERFOCUSED. HER BIGGEST CONCERN TODAY WAS HER CELL PHONE MEAT GRINDER, SHE RESTARTED HER SEARCH FOR IT WITH EVERY STAFF MEMBER WHO WENT IN THE ROOM FOR A COUPLE OF HOURS. SHE WAS ABLE TO SIT UP IN THE CHAIR FOR LUNCH, SHE IS CURRENTLY SITTING UP IN THE CHAIR AWAITING DINNER ARRIVAL. CHAIR ALARM FOR SAFETY, CALL LIGHT IN REACH NO S&S OF DISTRESS NOTED 2L O2 VIA NC AT THIS TIME.
[2024-03-19] MEDS ORDERED: MethylPREDNISolone Sod Succ 40 MG VIAL IV SCH (19:30)
[2024-03-19] MEDS ORDERED: Lactobacil 2-S.Thermo-Bifido 1 1 Cap PO SCH (21:00)
[2024-03-19] MEDS ORDERED: Amoxicillin/Clavulanate K 875 MG Tab PO SCH (21:00)
[2024-03-19] MEDS ORDERED: CARAFATE1 GM (23:47)
[2024-03-19] MEDS ORDERED: ANORO ELLIPTA1 EACH INH (23:48)
[2024-03-19] MEDS ORDERED: Flonase 0.05% N16 GM (23:49)
[2024-03-19] MEDS ORDERED: FISH OIL 1,0001 EA10 PO (23:51)
[2024-03-19] MEDS ORDERED: Voltaren100 GM TOP (23:52)
[2024-03-19] MEDS ORDERED: SENN187 PO (23:53)
[2024-03-19] MEDS ORDERED: Ketoconazole120 ML TOP (23:53)
[2024-03-20] MEDS ORDERED: MethylPREDNISolone Sod Succ 125 MG Vial IV SCH
[2024-03-20 02:47] VITALS: BP 137/72
[2024-03-20 06:25] LABS: Hematocrit 35.2 % (33.0-51.0); Hemoglobin 11.7 g/dL (11.5-16.0)
[2024-03-20 06:54] LABS: Albumin, Blood 2.8 g/dL (3.4-5.0); Anion Gap 14 mmol/L (3-11); Blood Urea Nitrogen 57 mg/dL (8-24); Bun/Creatinine Ratio 17.3 (12.0-20.0); CO2, Blood 28 mmol/L (21-32); Calcium, Blood 9.2 mg/dL (8.5-10.1); Chloride, Blood 92 mmol/L (98-108); Glomerular Filtration Rate 15 (60-); Glucose, Blood 150 mg/dL (70-99); Magnesium, Blood 2.2 mg/dL (1.6-2.4); Phosphorus, Blood 2.8 mg/dL (2.5-4.9); Potassium, Blood 4.3 mmol/L (3.5-5.5); Sodium, Blood 130 mmol/L (136-145)
--- NOTE | 2024-03-20 07:42 | NUR ---
VP [employer]PORATE DEVELOPMENT SUMMARY NO ACUTE EVENTS. PT A/OX4. ABLE TO MAKE NEEDS KNOWN. PT CALLING APPROPRIATELY. PT SLEPT WELL T/O THE NIGHT WITH FEW PERIODS OF WAKEFULLNESS. PT BEGAN COUGING PERSISTENTLY AROUND 0500; TESSLAN PEARLS GIVEN. NEW SPUTUM SAMPLE SENT TO LAB; ORDER REENTERED FIRST SPUTUM SAMPLE COLLECTED AND SENT WAS NOT ADEQUATE. REGULAR INTERVAL ROUNDING COMPLETE. CALL LIGHT ACCESSIBLE.
[2024-03-20 07:50] VITALS: BP 143/79
[2024-03-20] MEDS ORDERED: Amoxicillin/Clavulanate K 500 MG Tab PO SCH (09:00)
[2024-03-20 15:42] VITALS: BP 153/80
--- NOTE | 2024-03-20 19:13 | NUR ---
SHIFT SUMMARY- PT ALERT AND ORIENTED AND 1PA TO THE BSC. PT DID NOT HAVE DIALYSIS TODAY. SHE HAS A RIGHT FA IV THAT IS PATENT AND RUNNING IV ABX AT THE TIME OF BEDSIDE REPORT. PT IN BED, CALL LIGHT IN REACH NO S&S OF DISTRESS NOTED AT THE TIME OF BEDSIDE REPORT.
[2024-03-20 19:49] VITALS: BP 126/79
[2024-03-21] VITALS (13 sets, daily range): BP systolic 105–160; BP diastolic 55–106
--- NOTE | 2024-03-21 03:27 | NUR ---
Pt A&O x4, VS WNL, Pt O2 sats decreased this shift on 2L, increased to 3L to keep sats above 90%. Denies pain, remains on IVABX. Tele NSR with 1st degree block. Pt with adequate PO intake, Anuric, BM on 03/19, Awaiting PT//OT eval. L/S decreased in Lt. lobes. HD on .
[2024-03-21 05:46] LABS: Hematocrit 36.6 % (33.0-51.0); Hemoglobin 12.2 g/dL (11.5-16.0)
[2024-03-21 06:30] LABS: Albumin, Blood 2.9 g/dL (3.4-5.0); Anion Gap 15 mmol/L (3-11); Blood Urea Nitrogen 82 mg/dL (8-24); Bun/Creatinine Ratio 20.3 (12.0-20.0); CO2, Blood 26 mmol/L (21-32); Chloride, Blood 91 mmol/L (98-108); Creatinine, Blood 4.04 mg/dL (0.40-1.00); Glomerular Filtration Rate 11 (60-); Glucose, Blood 139 mg/dL (70-99); Magnesium, Blood 2.5 mg/dL (1.6-2.4); Phosphorus, Blood 4.9 mg/dL (2.5-4.9); Potassium, Blood 4.9 mmol/L (3.5-5.5); Sodium, Blood 127 mmol/L (136-145)
[2024-03-21] MEDS ORDERED: Linezolid 600 MG Tab PO SCH (09:00)
--- NOTE | 2024-03-21 14:11 | NUR ---
PT RECIEVED DIALYSIS THIS MORNING IN PREPARATION FOR POSSIBLE DC LATER TODAY. CARE MANAGEMENT JUST CAME AND SPOKE TO THIS RN, THEY ARE PUTTING THE DC PACKET TOGETHER AND ARRANGING TRANSPORT. PT IS RETURNING TO [facility]. ORDERS RECIEVED. PT [facility] FOR A SPUTUM CULTURE THAT WAS POSSITIVE FOR MRSA. PT IS AWARE OF THE DISCHARGE PLAN AND WANTS TO GO TODAY.
[2024-03-21] MEDS ORDERED: Tessalon200 MG PO (14:30)
[2024-03-21] MEDS ORDERED: AMOCLA500 PO (14:30)
[2024-03-21] MEDS ORDERED: LINE600 PO (14:31)
[2024-03-21] MEDS ORDERED: Prednisone10 MG PO (14:34)
--- NOTE | 2024-03-21 15:46 | NUR ---
DISCHARGE NOTE- PT WAS DISCHARGED BACK TO [facility]. IV AND TELE DC'D BY MARIAM NAIK PRIOR TO DISCHARGE.PT WAS TAKEN VIA GURNEY TRANSPORT, SHE WAS ON 2L O2 VIA NC AT THE TIME OF DISCHARGE, NO S&S OF DISTRESS NOTED AT THW TIME OF DISCHARGE.
[2024-03-21] MEDS ORDERED: SIMVASTATIN 10MG TABLET PO SCH (21:00)
[2024-03-22] MEDS ORDERED: PredniSONE 20 MG Tab PO SCH (09:00)
== END 2024-03-21 15:28 | DRG 871 ==
LOC: ER 15:31 → PCU 20:36 → ERHOLD 20:36 → MEDS 20:36 → PCU 03-17 08:44 → MEDS 03-18 08:41
PROVIDERS: Family Medicine; Internal Medicine Nephrology; Student in an Organized Health Care Education/Training Program; ADMIT Student in an Organized Health Care Education/Training Program
PROC: 3E03329 Introduction of Other Anti-infective into Peripheral Vein, Percutaneous Approach (ICD-10-PCS; principal; 2024-03-16)
PROC: 5A1D70Z Performance of Urinary Filtration, Intermittent, Less than 6 Hours Per Day (ICD-10-PCS; 2024-03-17)
DX: A41.9 Sepsis, unspecified organism (principal); I50.23 Acute on chronic systolic (congestive) heart failure; J18.9 Pneumonia, unspecified organism; N18.6 End stage renal disease; J96.01 Acute respiratory failure with hypoxia; N39.0 Urinary tract infection, site not specified; J44.0 Chronic obstructive pulmonary disease with (acute) lower respiratory infection; I13.2 Hypertensive heart and chronic kidney disease with heart failure and with stage 5 chronic kidney disease, or end stage renal disease; E87.1 Hypo-osmolality and hyponatremia; J44.1 Chronic obstructive pulmonary disease with (acute) exacerbation; Z99.2 Dependence on renal dialysis; F31.9 Bipolar disorder, unspecified; F41.9 Anxiety disorder, unspecified; F43.10 Post-traumatic stress disorder, unspecified; E78.00 Pure hypercholesterolemia, unspecified; K21.9 Gastro-esophageal reflux disease without esophagitis; D63.1 Anemia in chronic kidney disease; I25.10 Atherosclerotic heart disease of native coronary artery without angina pectoris; R65.20 Severe sepsis without septic shock; I35.0 Nonrheumatic aortic (valve) stenosis; E87.5 Hyperkalemia; B96.1 Klebsiella pneumoniae [K. pneumoniae] as the cause of diseases classified elsewhere; B95.2 Enterococcus as the cause of diseases classified elsewhere; Z88.0 Allergy status to penicillin; Z88.8 Allergy status to other drugs, medicaments and biological substances; Z91.011 Allergy to milk products; Z91.09 Other allergy status, other than to drugs and biological substances; Z79.891 Long term (current) use of opiate analgesic; Z79.899 Other long term (current) drug therapy; Z79.82 Long term (current) use of aspirin; Z98.890 Other specified postprocedural states; Z87.891 Personal history of nicotine dependence
CPT/HCPCS: 36415; 71045; 80048; 80053; 80069; 81001; 83605; 83735; 84100; 84145; 84484; 85014; 85018; 85025; 87040; 87070; 87077; 87086; 87186; 87205; 87428-QW; 93005; 93010; 94640; 94664; 94760; 94762; 96365; 96366; 96375; 97116; 97161; 97530; 99285-25; A9270; J0456; J0696; J1644; J2919; J7030; J7050; P9612